=== PATIENT | female | born 1985 | race Caucasian/White ===

== ENCOUNTER 2019-07-27 09:14 | Emergency (ER) | payer OTHER ==
[~2019-07-27] VITALS: Ht 165.1 cm; Wt 61.2 kg
[2019-07-27 09:32] VITALS: BP_SYST 113
--- NOTE | 2019-07-27 10:15 | NUR ---
Patient to ER bed 7 to gown for evaluation. Side rails up. Report given to OSEI Stuart.
--- NOTE | 2019-07-27 10:19 | NUR ---
Patient is awake, alert, and oriented x4. Patient reports no BM x4 weeks, fever and chills last night. She presents with sharp right sided abdominal 3/10. Patient reports using stool softeners, prune juice, and metamucil with little effect.
--- NOTE | 2019-07-27 10:21 | NUR ---
ER Dr. Johnson at bedside examining patient.
[2019-07-27 10:54] VITALS: BP_SYST 113
--- NOTE | 2019-07-27 10:54 | NUR ---
Patient given written and verbal discharge instructions and verbalizes understanding. ER MD discussed with patient the results and treatment provided. Patient in stable condition. ID arm band removed. Rx of golytely given. Patient educated on pain management and to follow up with PMD. Pain Scale 0/10. Opportunity for questions provided and answered. Medication side effect fact sheet provided.
== END 2019-07-27 10:54 | disposition home or self-care (01) ==
LOC: SED 09:14
DX: K59.00 Constipation, unspecified (principal); Z88.5 Allergy status to narcotic agent; Z88.6 Allergy status to analgesic agent
CPT/HCPCS: 74018; 81025; 99283